=== PATIENT | female | born 1965 | race African-American/Black ===

== ENCOUNTER → 2017-07-19 | Outpatient (CLI) | payer BC | END | disposition home or self-care (01) | LOC: KCIC MAMMO 15:48 | DX: Z12.31 Encounter for screening mammogram for malignant neoplasm of breast (principal) | CPT/HCPCS: 77063; 77067 ==

== ENCOUNTER → 2018-11-30 | Outpatient (CLI) | payer BC ==
[~2018-11-30] MED LIST: ONDA4TAB10 SL; POLY17PO29 PO
--- NOTE | 2018-11-30 10:11 | KCIC ---
BILATERAL DIAGNOSTIC 3-D MAMMOGRAPHY AND RIGHT BREAST ULTRASOUND History: Right breast pain and lump x3 weeks. Comparison: Bilateral mammogram 07/19/2017. Technique: Routine MLO and CC tomosynthesis (3D) digital views performed. Images reviewed by the radiologist at dedicated workstation. Findings: Breast Tissue Density C : The breasts are heterogeneously dense, which may obscure small masses. There are no dominant masses, suspicious microcalcifications or architectural distortion. Real-time ultrasound imaging of the right breast is performed. Sub-5 mm cystic and fibrocystic lesions are identified at the 7:00 position 1 cm from the nipple, 9:00 position 1 cm from the nipple, 11:00 position 1 cm from the nipple, 12:00 position 2 cm from the nipple, and 2:00 position 2 cm from the nipple. The 7:00 position finding may account for the area of palpable concern. No solid mass or architectural distortion is identified. IMPRESSION: 1. No mammographic evidence of malignancy. 2. Cystic and fibrocystic changes are noted near the nipple in the right breast. Recommend 6 month follow-up right breast ultrasound. BI-RADS category 3: Probably benign. The images were reviewed with computer-aided detection. Patient information is entered into the reminder system with a target due date for the next screening mammogram. Mammography is the most sensitive method for finding small breast cancers, but it does not detect them all and is not a substitute for careful clinical examination. A negative mammogram does not negate a clinically suspicious finding and should not result in delay in biopsying a clinically suspicious abnormality. "Our facility is accredited by the [employer] Mammography [employer]." Electronically signed by: Gama Fine MD (11/30/2018 10:08 AM) [id number]
== END | disposition home or self-care (01) ==
LOC: KCIC MAMMO 07:49
PROVIDERS: ATTEND Family Medicine
DX: N64.89 Other specified disorders of breast (principal)
CPT/HCPCS: 76641; 77066; G0279; 77062

== ENCOUNTER → 2019-11-07 | Outpatient (CLI) | payer BC ==
--- NOTE | 2019-11-07 11:10 | KCIC ---
Right breast ultrasound: Reason for examination: Follow-up nodules. Comparison is made to previous study dated 11/30/2018. Right whole breast ultrasound including evaluation of all 4 quadrants and the retroareolar and axillary regions of the right breast was performed. At the 12:00 position 1 cm from the nipple, there is a 6.5 mm hypoechoic fibrocystic lesion which appears corresponding with the lesion at the 11:00 position 1 cm from the nipple and has shown a slight decrease in size. At the 12:00 position 2 cm from the nipple, there continues to be a 3.7 mm hypoechoic fibrocystic type lesion which is stable. At the 2:00 position 2 cm from the nipple, there is a small 3 mm hypoechoic fibrocystic type lesion which is stable. At the 7:00 position 1 cm from the nipple, there is a 4.7 mm hypoechoic fibrocystic type lesion at the 7:00 position 4 cm from the nipple, there is a 1 cm hypoechoic fibrocystic type lesion. At the 9:00 position 1 cm from the nipple there continues to be a small 4.9 mm hypoechoic fibrocystic lesion. At the 11:00 position 1 cm from the nipple, there is a 4.4 mm hypoechoic fibrocystic lesion. No suspicious-appearing nodules are seen. No abnormal appearing lymph nodes are seen in the axilla. IMPRESSION: Continued presence of benign-appearing fibrocystic lesions with a new fibrocystic lesion at the 7:00 position measuring 1 cm in greatest dimension. No suspicious-appearing lesion seen. Recommend 6 month follow-up with ultrasound. BI-RADS Category 3: Probably Benign. "Our facility is accredited by the [employer] Mammography [employer]." This patient's information has been entered into a reminder system for the patient to be notified with the results of her examination and a target date for the next mammogram. Electronically signed by: Lorena Zhao MD (11/07/2019 11:08 AM) [id number]
--- NOTE | 2019-11-07 13:34 | KCIC ---
Thyroid ultrasound 11/07/2019 CLINICAL HISTORY: Cervical lymphadenopathy. TECHNIQUE: A real-time ultrasound examination of the thyroid gland and the neck in the area of the patient's lymphadenopathy performed. Multiple images were obtained. FINDINGS: The thyroid gland is within normal limits in size. The right lobe of thyroid gland measures 4.1 x 1.3 x 0.9 cm in longitudinal, transverse, and AP dimensions. The left lobe of thyroid gland measures 3.3 x 1.5 x 0.7 cm in size. The isthmus measures 2.4 mm in thickness. In the inferior aspect of the left lobe of thyroid gland an oval-shaped well-defined heterogeneous nodule is seen which measures 8 mm in greatest diameter. It is likely benign. No additional abnormality of the thyroid gland is seen. Small reactive lymph nodes are seen within the left neck which measure 5 mm to 1.5 cm in size. No abnormal soft tissue mass or cervical lymphadenopathy is seen. IMPRESSION: Essentially negative study. Electronically signed by: Gonzalo Harper MD (11/07/2019 1:32 PM) [id number]
== END ==
LOC: KCIC US 07:51
PROVIDERS: ATTEND Family Medicine
DX: N60.11 Diffuse cystic mastopathy of right breast (principal); R59.0 Localized enlarged lymph nodes
CPT/HCPCS: 76536; 76641

== ENCOUNTER → 2021-07-29 | Outpatient (CLI) | payer BC ==
--- NOTE | 2021-07-29 13:59 | RAD ---
DIAGNOSTIC BILATERAL BREAST MAMMOGRAM AND RIGHT BREAST ULTRASOUND TECHNIQUE: Bilateral 2-D and 3-D digital mammography performed in routine CC and MLO projections. Gra yscale and color doppler ultrasound of the right breast. INDICATION: Follow-up probably benign fibrocystic lesion right breast and due for bilateral screening . COMPARISON: Ultrasound 11/07/2019, 11/30/2018. Mammogram 11/30/2018, 07/19/2017, 11/01/2014 FINDINGS: Breast Density: Category C: The breast tissue is heterogeneously dense, which could obscure detection of small masses. There is no suspicious mass, calcification or architectural distortion identified in the bilateral br easts. Ultrasound performed in the 7:00 radial of the right breast, 4 cm from the nipple demonstrates stable to minimally decreased conspicuity of fibrocystic lesion measuring 0.7 x 0.4 x 0.2 cm with cluster o f small anechoic cysts. No abnormal color Doppler flow. No enlarged right axillary lymph nodes are id entified. IMPRESSION: 1. No imaging evidence of malignancy. 2. Stable benign right breast fibrocystic lesion. ASSESSMENT: BI-RADS 2: Benign. RECOMMENDATION: Routine annual screening mammogram. Your patient's mammogram demonstrates that she has dense breast tissue (breast density category C or D), which could hide abnormalities, and if she has other risk factors for breast cancer that have bee n identified, she might benefit from supplemental screening tests that may be suggested by you as her ordering physician. Dense breast tissue, in and of itself, is a relatively common condition. Therefo re, this information is not provided to cause undue concern, but rather to raise your awareness and t o promote discussion with your patient regarding the presence of other risk factors, in addition to d ense breast tissue. The facility will notify the patient of the results via mail. Patient information will be entered int o the mammography reminder system with a target recall date for the next mammogram. A reminder letter will be generated by the facility. Electronically signed by: Edu Asencio MD (07/29/2021 1:56 PM) [id number]
== END ==
LOC: MAMMO 12:48
PROVIDERS: ATTEND Family Medicine
DX: N64.89 Other specified disorders of breast (principal); N64.4 Mastodynia
CPT/HCPCS: 76641; 77066